=== PATIENT | female | born 1985 | race Caucasian/White ===

== ENCOUNTER 2022-05-17 09:27 | Emergency (ER) | payer BC ==
[2022-05-17 09:40] VITALS: BP 130/84; PULSE 92; RESP 18; TEMP 98.1; BMI 49.8
[2022-05-17] MEDS ORDERED: LIDOCAINE 5% TOPICAL PATCH TP ONE (10:35)
[2022-05-17] MEDS ORDERED: diazePAM 5 MG TABLET PO ONE (10:35)
[2022-05-17] MEDS ORDERED: diazePAM 5 MG TABLET ONE (10:40)
[2022-05-17] MEDS ORDERED: LIDOCAINE 5% TOPICAL PATCH ONE (10:40)
[2022-05-17] MEDS ORDERED: LIDOCAINE PATCH REMOVAL MC SCH (22:00)
== END 2022-05-17 10:47 | disposition home or self-care (01) ==
LOC: JER 09:27
DX: M54.50 Low back pain, unspecified (principal)
CPT/HCPCS: 99283-25